=== PATIENT | female | born 1995 | race African-American/Black ===

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

== ENCOUNTER 2017-11-19 22:37 | Emergency (ER) | payer MEDICAID, OTHER ==
[~2017-11-19] VITALS: Ht 165.1 cm; Wt 90.0 kg
[~2017-11-19 22:37] MED LIST changes: +ATRITAB PO; +BACT800T5 PO; -IBUP800T23 PO; -ROBA500T PO; -Z.0.NO CURRENT MEDS
[2017-11-19 22:51] VITALS: BP 137/58; PULSE 76; RESP 16; TEMP 98.8; O2SAT 97
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
[2017-11-20 02:00] LABS: BASOPHIL % 0.2 % (0.0-2.0); EOSINOPHIL # 0.1 TH/MM3 (0-0.4); EOSINOPHIL % 2.3 % (0.0-4.0); HEMATOCRIT 31.4 % (35.0-46.0); LYMPH % 33.4 % (9.0-44.0); LYMPHOCYTE # 1.3 TH/MM3 (1.0-4.8); MEAN CELL VOLUME 80.8 FL (80.0-100.0); MEAN CORPUSCULAR HEMOGLOBIN 28.2 PG (27.0-34.0); MEAN CORPUSCULAR HGB CONC 34.9 % (32.0-36.0); MEAN PLATELET VOLUME 7.5 FL (7.0-11.0); MONO % 10.6 % (0.0-8.0); MONOCYTE # 0.4 TH/MM3 (0-0.9); NEUT % 53.5 % (16.0-70.0); PLATELET COUNT 241 TH/MM3 (150-450); RED BLOOD COUNT 3.89 MIL/MM3 (4.00-5.30); RED CELL DISTRIBUTION WIDTH 12.7 % (11.6-17.2); WHITE BLOOD COUNT 3.8 TH/MM3 (4.0-11.0)
[2017-11-20 02:02] LABS: ALBUMIN 3.5 GM/DL (3.4-5.0); ALT (GPT) 17 U/L (9-42); AST (GOT) 17 U/L (16-38); BICARBONATE 29.6 MEQ/L (21.0-32.0); BLOOD UREA NITROGEN 14 MG/DL (7-18); CALCIUM 8.2 MG/DL (8.5-10.1); CHLORIDE 105 MEQ/L (98-107); CREATININE 0.75 MG/DL (0.50-1.00); GLOMERULAR FILTRATION RATE 119 ML/MIN (>89); GLUCOSE,RANDOM 96 MG/DL (74-106); SODIUM (NA) 141 MEQ/L (136-145)
[2017-11-20 02:12] LABS: ALKALINE PHOSPHATASE 60 U/L (45-117); TOTAL BILIRUBIN ADULT 0.1 MG/DL (0.2-1.0)
[2017-11-20 02:26] LABS: ACETAMINOPHEN LESS THAN 2.0 MCG/ML (10.0-30.0)
[2017-11-20 04:45] VITALS: BP 144/91; PULSE 93; RESP 18; TEMP 99.1; O2SAT 98
[2017-11-20 10:15] VITALS: BP_SYST 122; BP_SYST 129; BP_DIAS 75; BP_DIAS 80; PULSE 61; PULSE 69; RESP 18; RESP 20; O2SAT 99
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
--- NOTE | 2017-11-20 13:09 | PD ---
Physical Exam Time Seen by Provider: 13:07 Narrative Please refer to previous providers documentation for details regarding the patient's current visit. Data Data Last Documented VS Vital Signs Date Time Temp Pulse Resp B/P (MAP) Pulse Ox O2 Delivery O2 Flow Rate FiO2 11/20/17 10:15 69 18 122/75 (91) 99 Room Air 11/20/17 04:45 99.1 Orders Orders Complete Blood Count With Diff (11/20/17 01:01) Comprehensive Metabolic Panel (11/20/17 01:01) Thyroid Stimulating Hormone (11/20/17 01:01) Ed Urine Pregnancytest Poc (11/20/17 01:01) Psych Screen (11/20/17 01:01) Drug Screen, Random Urine (11/20/17 01:01) Alcohol (Ethanol) (11/20/17 01:01) Salicylates (Aspirin) (11/20/17 01:01) Tylenol (Acetaminophen) (11/20/17 01:01) Group A Rapid Strep Screen (11/20/17 01:34) Strep Culture (Group A) (11/20/17 01:53) Diet Regular Basic (11/20/17 Breakfast) Diet Regular Basic (11/20/17 Lunch) Ed Discharge Order (11/20/17 13:06) Labs Laboratory Tests Test 11/20/17 01:35 11/20/17 01:53 White Blood Count 3.8 TH/MM3 Red Blood Count 3.89 MIL/MM3 Hemoglobin 11.0 GM/DL Hematocrit 31.4 % Mean Corpuscular Volume 80.8 FL Mean Corpuscular Hemoglobin 28.2 PG Mean Corpuscular Hemoglobin Concent 34.9 % Red Cell Distribution Width 12.7 % Platelet Count 241 TH/MM3 Mean Platelet Volume 7.5 FL Neutrophils (%) (Auto) 53.5 % Lymphocytes (%) (Auto) 33.4 % Monocytes (%) (Auto) 10.6 % Eosinophils (%) (Auto) 2.3 % Basophils (%) (Auto) 0.2 % Neutrophils # (Auto) 2.0 TH/MM3 Lymphocytes # (Auto) 1.3 TH/MM3 Monocytes # (Auto) 0.4 TH/MM3 Eosinophils # (Auto) 0.1 TH/MM3 Basophils # (Auto) 0.0 TH/MM3 CBC Comment DIFF FINAL Differential Comment Blood Urea Nitrogen 14 MG/DL Creatinine 0.75 MG/DL Random Glucose 96 MG/DL Total Protein 9.0 GM/DL Albumin 3.5 GM/DL Calcium Level 8.2 MG/DL Alkaline Phosphatase 60 U/L Aspartate Amino Transf (AST/SGOT) 17 U/L Alanine Aminotransferase (ALT/SGPT) 17 U/L Total Bilirubin 0.1 MG/DL Sodium Level 141 MEQ/L Potassium Level 3.5 MEQ/L Chloride Level 105 MEQ/L Carbon Dioxide Level 29.6 MEQ/L Anion Gap 6 MEQ/L Estimat Glomerular Filtration Rate 119 ML/MIN Thyroid Stimulating Hormone 3rd Gen 1.610 uIU/ML Salicylates Level LESS THAN 1.7 MG/DL Acetaminophen Level LESS THAN 2.0 MCG/ML Ethyl Alcohol Level LESS THAN 3 MG/DL Urine Opiates Screen NEG Urine Barbiturates Screen NEG Urine Amphetamines Screen NEG Urine Benzodiazepines Screen NEG Urine Cocaine Screen NEG Urine Cannabinoids Screen NEG MDM Medical Record Reviewed: Yes Supervised Visit with ESSENCE: No Narrative Course Patient was brought in under Martins act, medically cleared and then evaluated by psychiatry. Patient's Martins act has been lifted. With no further medical needs , she will be discharged at this time. Diagnosis Primary Impression: Adjustment disorder Scripts No Active Prescriptions or Reported Meds Disposition: 01 DISCHARGE HOME Condition: Stable BenitoMartakee VICENTE Nov 20, 2017 13:09
== END 2017-11-20 14:00 | disposition home or self-care (01) ==
LOC: NEPD 22:37 → NEPJ 11-20 14:00
DX: F43.21 Adjustment disorder with depressed mood (principal); J02.9 Acute pharyngitis, unspecified; R05 Cough; Z21 Asymptomatic human immunodeficiency virus [HIV] infection status
CPT/HCPCS: 80053; 80307; 84443; 84703; 85025; 87081; 87880; 99283